=== PATIENT | male | born 1950 | race Caucasian/White ===

== ENCOUNTER 2021-03-17 13:38 | Outpatient (CLI) | payer MEDICARE, BC | END 2021-03-17 13:39 | disposition home or self-care (01) | LOC: COV 13:38 | PROVIDERS: ATTEND Family Medicine | DX: Z20.822 Contact with and (suspected) exposure to COVID-19 (principal) ==

== ENCOUNTER 2022-10-28 08:00 | Outpatient (CLI) | payer MEDICARE, BC ==
--- NOTE | 2022-10-29 08:07 | XRAY Report ---
PROCEDURE: Toe(s) RT INDICATIONS: GREAT RIGHT TOE CONTUSION TECHNIQUE: 3 views of the first toe(s) acquired. COMPARISON: None. FINDINGS: Bones: No fractures or dislocations. No suspicious bony lesions. Moderate degenerative joint disea se at the first metatarsophalangeal joint. Soft tissues: No suspicious soft tissue densities. IMPRESSION: 1. No acute osseous amenities. 2. Moderate degenerative joint disease. Reviewed by: El Gonzalez MD on 10/29/2022 8:05 AM PDT Approved by: El Gonzalez MD on 10/29/2022 8:05 AM PDT Station ID: [id number]
== END 2022-10-28 23:59 | disposition home or self-care (01) ==
LOC: DI.S 08:00
PROVIDERS: ATTEND Physician Assistant Medical
DX: M19.071 Primary osteoarthritis, right ankle and foot (principal)

== ENCOUNTER 2024-01-27 07:22 | Outpatient (CLI) | payer MEDICARE, BC | END 2024-01-27 23:59 | disposition critical access hospital (66) | LOC: EMS 07:22 | DX: R55 Syncope and collapse (principal); R61 Generalized hyperhidrosis; R19.7 Diarrhea, unspecified; R53.83 Other fatigue; R53.81 Other malaise; I48.91 Unspecified atrial fibrillation | CPT/HCPCS: A0425; A0427 ==

== ENCOUNTER 2024-01-27 07:55 | Emergency (ER) | payer MEDICARE, BC ==
--- NOTE | 2024-01-27 08:33 | ED Physician Documentation ---
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 He has had monitor placed previously and he does not know of any diagnosis of atrial fibrillation. He is usually physically fit and has not had coronary syndrome previously. He has felt fatigued for the past 5 days he has not had cough or congestion he has had intermittent fever and diarrhea. He reports 4 loose stools daily without blood. 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 He does not feel that he is adequately rehydrated. Review of Systems Constitutional: reports: Fever, Chills, Sweats Eyes: denies: Decreased vision Ears: denies: Ear pain Nose: denies: Rhinorrhea / runny nose, Congestion Throat: denies: Sore throat Cardiac: denies: Chest pain / pressure, Palpitations Respiratory: denies: Dyspnea, Cough GI: reports: Abdominal Pain, Nausea, Diarrhea. denies: Vomiting : denies: Dysuria, Frequency PD PAST MEDICAL HISTORY - Past Medical History Past Medical History: Yes Cardiovascular: High cholesterol, Arrhythmia - Past Surgical History Past Surgical History: No - Present Medications Home Medications: Ambulatory Orders Medication Instructions Recorded Confirmed Ciprofloxacin HCl [Cipro] 500 mg PO BID #10 tablet 01/27/24 Metoprolol Succinate [Toprol Xl] 25 mg PO ONCE 01/27/24 01/27/24 Ondansetron Odt [Zofran] 4 mg TL Q6H PRN #10 tablet 01/27/24 Rosuvastatin Calcium 40 mg PO DAILY 01/27/24 01/27/24 - Allergies Allergies/Adverse Reactions: Allergies Allergy/AdvReac Type Severity Reaction Status Date / Time sulfamethoxazole Allergy Hives Verified 01/27/24 08:03 [From Bactrim] trimethoprim [From Bactrim] Allergy Hives Verified 01/27/24 08:03 - Social History Does the pt smoke?: No Smoking Status: Never smoker PD ED PE NORMAL - Vitals Vital signs reviewed: Yes (tachy and diastolic hypertension ) - General General: Alert and oriented X 3, No acute distress, Well developed/nourished - HEENT HEENT: Atraumatic, PERRL, EOMI, Other (dry mucous membranes ) - Neck Neck: Supple, no meningeal sign, No bony TTP - Cardiac Cardiac: No murmur, Other (Tachycardic and irregularly irregular) - Respiratory Respiratory: No respiratory distress, Clear bilaterally - Abdomen Abdomen: Normal bowel sounds, Soft, Non tender, Non distended, No organomegaly - Back Back: No CVA TTP, No spinal TTP - Derm Derm: Normal color, Warm and dry, No rash - Extremities Extremities: No deformity, No edema - Neuro Neuro: Alert and oriented X 3, 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, No motor deficit, No sensory deficit, Normal speech Eye Opening: Spontaneous Motor: Obeys Commands Verbal: Oriented GCS Score: 15 - Psych Psych: Normal mood, Normal affect Results - Vitals Vitals: Vital Signs - 24 hr 01/27/24 01/27/24 01/27/24 08:01 08:45 09:17 Temperature 36.5 C Heart Rate 141 H 121 H 87 Respiratory 15 17 16 Rate Blood Pressure 112/82 H 111/88 H 98/67 O2 Saturation 95 97 99 01/27/24 01/27/24 01/27/24 09:50 10:00 10:57 Temperature Heart Rate 150 H 73 72 Respiratory 16 16 16 Rate Blood Pressure 99/65 99/63 102/65 O2 Saturation 95 99 96 Oxygen O2 Source Room air - EKG (time done) 0758 EKG releavant findings:: EKG personally interpreted by author of this note. Relevant findings are: Rate: Rate (enter#) (136) Rhythm: Atrial fibrillation [place]: Anterior hemiblock Compare to prior EKG: Old EKG unavailable Computer interpretation: Agree with computer - Labs Labs: Laboratory Tests 01/27/24 01/27/24 01/27/24 08:33 08:33 08:33 WBC 12.2 H RBC 5.00 Hgb 15.0 Hct 45.7 MCV 91.4 MCH 30.0 MCHC 32.8 RDW 13.2 Plt Count 137 MPV 9.6 Neut # (Auto) 10.1 H Lymph # (Auto) 0.6 L [place] # (Auto) 1.5 H Eos # (Auto) 0.0 Baso # (Auto) 0.0 Absolute Nucleated RBC 0.00 Nucleated RBC % 0.0 Sodium 134 L Potassium 3.8 Chloride 103 Carbon Dioxide 24 Anion Gap 7.0 BUN 14 Creatinine 0.9 Estimated GFR (MDRD) 83 L Glucose 111 H Calcium 8.2 L Magnesium 1.6 L Total Bilirubin 0.5 AST 15 ALT 16 Alkaline Phosphatase 56 Troponin I High Sens Total Protein 6.2 L Albumin 3.2 Globulin 3.0 Albumin/Globulin Ratio 1.1 Lipase 43 Nasal Adenovirus (PCR) Nasal B. parapertussis DNA (PCR) Nasal Coronavir 229E PCR Nasal Coronavir HKU1 PCR Nasal Coronavir NL63 PCR Nasal Coronavir OC43 PCR Nasal Enterovir/Rhinovir PCR Nasal Influenza B PCR Nasal Influenza A PCR Nasal Parainfluen 1 PCR Nasal Parainfluen 2 PCR Nasal Parainfluen 3 PCR Nasal Parainfluen 4 PCR Nasal RSV (PCR) Nasal B.pertussis DNA PCR Nasal C.pneumoniae (PCR) Genaro Human Metapneumo PCR Nasal M.pneumoniae (PCR) Nasal SARS-CoV-2 (PCR) 01/27/24 01/27/24 08:33 08:40 WBC RBC Hgb Hct MCV MCH MCHC RDW Plt Count MPV Neut # (Auto) Lymph # (Auto) [place] # (Auto) Eos # (Auto) Baso # (Auto) Absolute Nucleated RBC Nucleated RBC % Sodium Potassium Chloride Carbon Dioxide Anion Gap BUN Creatinine Estimated GFR (MDRD) Glucose Calcium Magnesium Total Bilirubin AST ALT Alkaline Phosphatase Troponin I High Sens 11.9 Total Protein Albumin Globulin Albumin/Globulin Ratio Lipase Nasal Adenovirus (PCR) NOT DETECTED Nasal B. parapertussis DNA (PCR) NOT DETECTED Nasal Coronavir 229E PCR NOT DETECTED Nasal Coronavir HKU1 PCR NOT DETECTED Nasal Coronavir NL63 PCR NOT DETECTED Nasal Coronavir OC43 PCR NOT DETECTED Nasal Enterovir/Rhinovir PCR NOT DETECTED Nasal Influenza B PCR NOT DETECTED Nasal Influenza A PCR NOT DETECTED Nasal Parainfluen 1 PCR NOT DETECTED Nasal Parainfluen 2 PCR NOT DETECTED Nasal Parainfluen 3 PCR NOT DETECTED Nasal Parainfluen 4 PCR NOT DETECTED Nasal RSV (PCR) NOT DETECTED Nasal B.pertussis DNA PCR NOT DETECTED Nasal C.pneumoniae (PCR) NOT DETECTED Genaro Human Metapneumo PCR NOT DETECTED Nasal M.pneumoniae (PCR) NOT DETECTED Nasal SARS-CoV-2 (PCR) NOT DETECTED Procedures - IVC sono (time) 0828 Bedside IVC sono: IVC measures (cm) (1.02), IVC collapsed c insp (cm) (complete), Dehydration (est 2 liter deficit) PD Medical Decision Making - ED course Complexity details: reviewed results, re-evaluated patient, considered differential, d/w patient, d/w family Reviewed Lab Results: We reviewed a complete blood count showing an elevated white blood cell count of 12.2 and a normal hematocrit hemoglobin and platelets chemistries show a sodium low at 134 normal electrolytes otherwise with the exception of magnesium low at 1.6 and calcium low at 8.2. BUN and creatinine are normal high-sensitivity troponin normal liver functions normal respiratory PCR negativeI interpreted these laboratory test indicate the patient has some electrolyte abnormality requiring correction under the circumstances of atrial fibrillation with rapid ventricular response. ED course: Noe Ramirez presented to the emergency department with atrial fibrillation with rapid ventricular response and a syncopal episode. He was found to be significantly volume depleted and volume was begun he was also found to have multiple abnormalities of electrolytes. He was administered 2 g of magnesium sulfate intravenously. He had rapid ventricular response he responded to a dose of 20 mg of diltiazem with an improvement in his heart rate to the 80s and 90s again with atrial fibrillation. His heart rate spontaneously went up to 150 bpm we ordered a second dose of diltiazem and he spontaneously converted prior to administration. Departure - Departure Disposition: 01 Home, Self Care Clinical Impression: Dehydration, Hypomagnesemia, Atrial fibrillation with RVR, Gastroenteritis Syncope Qualifiers: Syncope type: vasovagal syncope Qualified Code(s): R55 - Syncope and collapse Condition: Stable Instructions: Hypomagnesemia Dc, ED Afib, ED Dehydration, ED Syncope Vasovagal, ED Gastroenteritis Viral Follow-Up: Your, doctor [Other] Prescriptions: Ciprofloxacin HCl [Cipro] 500 mg PO BID #10 tablet Ondansetron Odt [Zofran] 4 mg TL Q6H PRN #10 tablet PRN Reason: Nausea / Vomiting Comments: Noe, today it looks like the gastroenteritis you have has caused significant dehydration and electrolyte abnormalities. This looks like it is triggered an episode of atrial fibrillation with rapid ventricular response. Today we found that you are significantly dehydrated and we have provided intravenous fluid as well as medications to slow the heart. Your heart did respond well to the medications and you have to have converted into a normal sinus rhythm. 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 Diarrhea that last more than 5 days he is sometimes treated with empiric antibiotic. I have E scribed some Cipro to the [facility] in [place].In addition I have E scribed some nausea medicine. My recommendations for today are to obtain some liquid IV or banana bag Electrolyte supplementation to be added to your water. Drink at least an extra quart of water today with electrolyte supplementation.If you continue to have the diarrhea overnight it is reasonable to take the empiric antibiotic therapy. I would wait overnight before starting this. It is likely your diarrhea will self resolve. Forms: PCP List Discharge Date/Time: 01/27/24 11:05
[2024-01-27 08:39] LABS: BASOPHILS % (AUTO) 0.2 %; EOSINOPHILS % (AUTO) 0.3 %; HCT - HEMATOCRIT 45.7 % (42.0-52.0); LYMPHOCYTES # (AUTO) 0.6 10^3/uL (1.5-3.5); LYMPHOCYTES % (AUTO) 4.7 %; MEAN CORPUSCULAR HGB CONC 32.8 g/dL (32.0-36.0); MEAN CORPUSCULAR VOLUME 91.4 fL (80.0-94.0); MEAN PLATELET VOLUME 9.6 fL (7.4-11.4); MONOCYTES # (AUTO) 1.5 10^3/uL (0.0-1.0); NEUTROPHILS # (AUTO) 10.1 10^3/uL (1.5-6.6); NEUTROPHILS % (AUTO) 82.3 %; PLT - PLATELET COUNT 137 10^3/uL (130-450); RED CELL DISTRIBUTION WIDTH 13.2 % (12.0-15.0); WHITE BLOOD COUNT 12.2 x10^3/uL (4.8-10.8)
[2024-01-27] MEDS: diltiaZEM INJ 5 MG/ML VIAL IVP STA ×2 (08:48→10:23)
[2024-01-27] MEDS: SODIUM CHLORIDE 0.9% 1,000 ML IV STA (08:49)
[2024-01-27 08:54] LABS: ALBUMIN 3.2 g/dL (3.2-5.5); ALBUMIN/GLOBULIN RATIO 1.1 (1.0-2.2); BILIRUBIN,TOTAL 0.5 mg/dL (0.2-1.0); CALCIUM 8.2 mg/dL (8.5-10.3); CREATININE 0.9 mg/dL (0.6-1.3); POTASSIUM 3.8 mmol/L (3.5-4.5); TOTAL PROTEIN 6.2 g/dL (6.4-8.9)
[2024-01-27] MEDS: MAGNESIUM SULFATE 2 GRAM 2 GM/50 ML BAG IV ONE (09:22)
[2024-01-27 09:58] LABS: B. PARAPERTUSSIS- RESP PCR PAN NOT DETECTED; B. PERTUSSIS- RESP PCR PANEL NOT DETECTED; C. PNEUMONIAE- RESP PCR PANEL NOT DETECTED; CORONAVIRUS 229E-RESP PCR NOT DETECTED; CORONAVIRUS HKU1-RESP PCR NOT DETECTED; CORONAVIRUS NL63-RESP PCR NOT DETECTED; CORONAVIRUS OC43-RESP PCR NOT DETECTED; HUMAN METAPNEUMOVIRUS NOT DETECTED; INFLUENZA A- RESP PCR PANEL NOT DETECTED; INFLUENZA B - RESP PCR PANEL NOT DETECTED; M. PNEUMONIAE- RESP PCR PANEL NOT DETECTED; PARAINFLUENZA VIRUS 1 NOT DETECTED; PARAINFLUENZA VIRUS 2 NOT DETECTED; PARAINFLUENZA VIRUS 3 NOT DETECTED; PARAINFLUENZA VIRUS 4 NOT DETECTED; RHINOVIRUS/ENTEROVIRUS NOT DETECTED; RSV- RESP PCR PANEL NOT DETECTED; SARS-CoV-2 -RESP PCR PANEL NOT DETECTED
[2024-01-27 11:00] VITALS: BP 102/65; O2SAT 96
== END 2024-01-27 11:05 | disposition home or self-care (01) ==
LOC: EDUNIT# → ED 07:55
DX: R55 Syncope and collapse (principal); K52.9 Noninfective gastroenteritis and colitis, unspecified; E86.0 Dehydration; E83.42 Hypomagnesemia; E87.1 Hypo-osmolality and hyponatremia; I48.91 Unspecified atrial fibrillation
CPT/HCPCS: 36415; 80053; 83690; 83735; 84484; 85025; 87633; 93005; 96361; 96365; 96375; 99284